=== PATIENT | male | born 1960 | race Caucasian/White ===

== ENCOUNTER 2018-05-11 17:49 | Emergency (ER) | payer OTHER ==
[~2018-05-11] VITALS: Ht 170.2 cm; Wt 88.8 kg
[~2018-05-11 17:49] MED LIST: ALB0.5UD IH; AZI25OT PO; FURO40TA4 PO; PRED20TA PO
[2018-05-11 18:02] VITALS: BP 138/90
== END 2018-05-11 20:57 | disposition left against medical advice (07) ==
LOC: ER 17:50
DX: R51 Headache (principal); M25.512 Pain in left shoulder; M25.511 Pain in right shoulder; Z53.21 Procedure and treatment not carried out due to patient leaving prior to being seen by health care provider